=== PATIENT | male | born 1975 | race Hispanic/Latino ===

== ENCOUNTER 2016-12-12 06:46 | Emergency (ER) | payer OTHER ==
[~2016-12-12] VITALS: Ht 180.3 cm; Wt 105.2 kg
[~2016-12-12 06:46] MED LIST: APIX5T PO; BENTYL10 M1 PO; BENTYL20 M1 PO; CARAFATE1 G1 PO; EPIPEN 2-P0.3 MG/0.3 SC; LIDODERM 5% PAT1 PAT TOP; MEDROL4 M2 PO; PERCOCET 325 MG1 TA2 PO; PROTONIX20 M1 PO; PROTONIX40 M3 PO
--- NOTE | 2016-12-12 07:21 | ED GENERAL ADULT ---
History of Present Illness General Chief Complaint: General Adult Stated Complaint: RIGHT CALF PAIN Source: patient Exam Limitations: no limitations Vital Signs & Intake/Output Vital Signs & Intake/Output Vital Signs Date Time Temp Pulse Resp B/P B/P Pulse O2 O2 Flow FiO2 Mean Ox Delivery Rate 12/12 0912 98.0 63 20 134/81 96 Room Air 12/12 0652 97.7 85 18 147/79 95 Room Air Allergies Coded Allergies: teddy (Severe, ANAPHYLAXIS 12/12/16) shellfish derived (Severe, ANAPHYLAXIS 12/12/16) Uncoded Allergies: LOBSTER (Severe, ANAPHYLAXIS 07/27/16) Reconcile Medications No Known Home Medications Triage Note: PT TO ED FOR C/C OF R CALF PAIN SINCE 020 FROM BELOW KNEE TO ANKLE. PT DENIES ANY TRAUMA TO LEG. HAS A HISTORY OF PE'S IN THE PAST, DOES NOT TAKE BLOOD THINNERS. Triage Nurses Notes Reviewed? 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 He now presents with right sided calf pain. The onset of the symptoms was at approximately 2 AM this morning, the severity is significant as his symptoms required him to come to the emergency department for care. The duration has been just the past several hours. He has no associated shortness of breath or chest pain. Past History Travel History Traveled to [place] past 21 day No Medical History Any Pertinent Medical History? see below for history Neurological: migraine EENT: NONE Cardiovascular: NONE Respiratory: pulmonary embolism Gastrointestinal: NONE Hepatic: NONE Renal: NONE Musculoskeletal: NONE Psychiatric: NONE Endocrine: NONE Blood Disorders: NONE Cancer(s): NONE PRODUCTION AIDE/Reproductive: NONE History of MRSA: No History of VRE: No History of CDIFF: No Tetanus Vaccine: 05/26/12 Surgical History Surgical History: LEFT WRIST SURGERY Psychosocial History Who do you live with Spouse Services at Home None What is your primary language Togolese Tobacco Use: Never used ETOH Use: occasional use Illicit Drug Use: denies illicit drug use Family History Hx Contributory? No Review of Systems Review of Systems Constitutional: Reports: no symptoms. EENTM: Reports: no symptoms. Respiratory: Denies: short of breath. Cardiovascular: Denies: chest pain. GI: Denies: abdominal pain. Genitourinary: Reports: no symptoms. Musculoskeletal: Reports: see HPI. Skin: Denies: rash. Neurological/Psychological: Reports: no symptoms. Hematologic/Endocrine: Reports: no symptoms. Immunologic/Allergic: Reports: no symptoms. Physical Exam Physical Exam General Appearance: well developed/nourished, alert, awake, anxious, mild distress Head: atraumatic Eyes: Bilateral: normal appearance, PERRL, EOMI. Ears, Nose, Throat: normal ENT inspection Neck: supple Respiratory: normal breath sounds, no respiratory distress Cardiovascular: regular rate/rhythm Back: normal range of motion Extremities: tenderness Neurologic/Psych: no motor/sensory deficits, awake, alert, oriented x 3 Skin: intact, normal color, warm/dry Comments: The patient's right lower extremity had mild tenderness to the lateral aspect of the right calf. There is no ligament instability to the right knee. There was no ankle swelling. He did have an excellent right dorsalis pedis pulse. Capillary refill to the right foot was less than 2 seconds Core Measures ACS in differential dx? No CVA/TIA Diagnosis: No Severe Sepsis Present: No Septic Shock Present: No Progress Differential Diagnoses I considered the following diagnoses in my evaluation of the patient: [No DVT, muscle strain, knee strain, ankle strain, synovial cyst] Plan of Care: Orders Procedure Date/time Status Add-on Test (ER Only) 12/13 727 Active PROTHROMBIN TIME 12/12 720 Complete D-DIMER 12/12 720 Complete COMPREHENSIVE METABOLIC PANEL 12/12 720 Complete CBC WITHOUT DIFFERENTIAL 12/12 720 Complete Laboratory Tests 12/12/16 0723: Anion Gap 12, Estimated GFR > 60, BUN/Creatinine Ratio 14.2, Glucose 99, Calcium 9.1, Total Bilirubin 0.7, AST 25, ALT 34, Alkaline Phosphatase 67, Total Protein 7.2, Albumin 4.1, Globulin 3.1, Albumin/Globulin Ratio 1.3, PT 10.6, INR 1.01, D -Dimer 2381 H, CBC w Diff NO MAN DIFF REQ, RBC 4.45 L, MCV 92.7, MCH 31.0, RDW 12.3, MPV 8.8, Gran % 61.8, Lymphocytes % 23.6, Monocytes % 7.8, Eosinophils % 6.5 H, Basophils % 0.3, Absolute Granulocytes 3.8, Absolute Lymphocytes 1.5, Absolute Monocytes 0.5, Absolute Eosinophils 0.4, Absolute Basophils 0, PUBS MCHC 33.4 Initial ED EKG: none Departure Departure Disposition: STILL A PATIENT Condition: Stable Clinical Impression Primary Impression: Muscle strain Referrals: ANGEL LIGHT,STEVO Infante (PCP/Family) Departure Forms: Customer Survey General Discharge Information Prescriptions: Current Visit Scripts No Known Home Medications Comments 12/12/16 9 AM Ultrasound was negative for DVT however the patient had a substantially elevated d-dimer. He did work out recently. I have paged vascular surgery for consultation. 12/12/16 9:30 AM Spoke to the vascular surgery PA covering for Dr. Weinstein. We are in agreement with empirically starting the patient on Eliquis and repeating the ultrasound in his office in 7 days Critical Care Note Critical Care Note Critical Care Time: non-applicable
[2016-12-12 07:37] LABS: ABSOLUTE BASOPHIL COUNT 0 /CUMM (0.0-0.2); ABSOLUTE EOSINOPHIL COUNT 0.4 /CUMM (0.0-0.7); ABSOLUTE GRANULOCYTE CT 3.8 /CUMM (1.4-6.5); ABSOLUTE LYMPH COUNT 1.5 /CUMM (1.2-3.4); ABSOLUTE MONOCYTE COUNT 0.5 /CUMM (0.10-0.60); BASOPHIL % 0.3 % (0.0-2.0); EOSINOPHIL % 6.5 % (0-5); GRANULOCYTE % 61.8 % (42.2-75.2); HEMATOCRIT 41.2 % (42-52); MEAN CORPUSCULAR HGB CONC 33.4 G/DL (33.0-37.0); MEAN CORPUSCULAR VOLUME 92.7 FL (80.0-94.0); MEAN PLATELET VOLUME 8.8 FL (7.4-10.4); PLATELET COUNT 164 /CUMM (130-400); RBC DISTRIBUTION WIDTH 12.3 % (11.5-14.5); RED BLOOD CELL CT 4.45 /CUMM (4.70-6.10); WHITE BLOOD CELL COUNT 6.2 /CUMM (4.8-10.8)
--- NOTE | 2016-12-12 07:54 | ULTRASOUND REPORT ---
EXAMINATION: US TRIPLEX LOWER EXTREMITY, RIGHT CLINICAL INFORMATION: Right lower extremity pain. History of PE. COMPARISON: None TECHNIQUE: Color-flow triplex imaging with spectral analysis and compression Doppler were performed on the lower extremity. FINDINGS: Respiratory variation, normal compression and augmented flow are noted throughout the left lower extremity. The visualized common femoral vein, superficial femoral vein, profunda femoral vein, popliteal vein and midcalf peroneal and posterior tibial venous segments show no evidence of deep venous thrombosis. There is no Wilcox's cyst. IMPRESSION: Normal triplex scan without evidence of deep venous thrombosis involving the lower extremity.
[2016-12-12 08:27] LABS: PT 10.6 SEC (9.4-12.5)
[2016-12-12 09:12] VITALS: BP 134/81
[2016-12-12] MEDS ORDERED: ELIQUIS5 M1 PO (09:36)
== END 2016-12-12 09:47 ==
LOC: ERH 06:46
PROVIDERS: Emergency Medicine
DX: S86.811A Strain of other muscle(s) and tendon(s) at lower leg level, right leg, initial encounter (principal); X58.XXXA Exposure to other specified factors, initial encounter